=== PATIENT | male | born 1950 | race Caucasian/White ===

== ENCOUNTER → 2018-08-23 | Outpatient (CLI) | payer MEDICARE ==
--- NOTE | 2018-08-24 07:14 | US ---
EXAMINATION TYPE: US kidneys/renal and bladder DATE OF EXAM: 08/23/2018 COMPARISON: NONE CLINICAL HISTORY: R31.9 Hematuria R10.9 Flank pain. EXAM MEASUREMENTS: Right Kidney: 11.1 x 4.7 x 5.4 cm Left Kidney: 11.9 x 6.1 x 5.4 cm Right Kidney: Possible parapelvic cysts vs cortical cyst. Cystic area upper pole visualized 2.1 x 1.7 x 2.1 cm. No hydronephrosis or nephrolithiasis. Left Kidney: No hydronephrosis or masses seen Bladder: wnl Bilateral Jets seen: Yes Cystic area visualized within the right lobe of the liver measuring 3.7 x 2.9 x 3.5 cm. Urinary bladd er is anechoic. Renal cortical medullary differentiation is maintained. No cortical renal thinning. IMPRESSION: Interval appearing hepatic cyst and right renal cyst. No hydronephrosis or nephrolithiasis bilaterall y.
== END | disposition home or self-care (01) ==
LOC: RADUSMAIN 15:40
PROVIDERS: ATTEND Internal Medicine
DX: N28.1 Cyst of kidney, acquired (principal); K76.89 Other specified diseases of liver; R31.9 Hematuria, unspecified
CPT/HCPCS: 76770

== ENCOUNTER → 2019-01-10 | Outpatient (CLI) | payer MEDICARE ==
--- NOTE | 2019-01-10 14:40 | BD ---
EXAMINATION TYPE: Axial Bone Density DATE OF EXAM: 01/10/2019 COMPARISON: NONE CLINICAL HISTORY: M [age]. Disorder of bone density and structure. Postmenopausal female. Osteoporosis screening. Height: 71 inches Weight: 170 FRAX RISK QUESTIONS: Alcohol (3 or more units per day): no Family History (Parent hip fracture): no Glucocorticoids (More than 3mos): no (Ex: prednisone, prednisolone, methylprednisolone, dexamethasone, and hydrocortisone). History of Fracture in Adulthood: no Secondary Osteoporosis: 1. Type 1 Diabetes: no 2. Hyperthyroidism: no 4. Malnutrition: no 5. Chronic liver disease: no Rheumatoid Arthritis: no Current Tobacco Use: no RISK FACTORS HISTORY OF: History of Wrist Fracture: yes When: age 11 Family History of Osteoporosis: no Active: yes Diet low in dairy products/other sources of calcium: no Lost more than 2 inches in height since high school: unsure, states height may have been 6 ft 2 inche s tall Frequent falls: no Poor Health: no Hyperparathyroidism: no Adrenal Insufficiency: no MEDICATIONS: Thyroid Medications: no Additional Medications: blood pressure meds, cholesterol meds, several vitamins, atenolol Additional History: EXAM MEASUREMENTS: Bone mineral densitometry was performed using the [employer] System. Bone mineral density as measured about the Lumbar spine is: ----- L1-L4(G/cm2): 1.531 T Score Values are as follows: ----- L2: 0.9 ----- L3: 2.3 ----- L4: 6.7 ----- L1-L4: 2.9 Bone mineral density BASELINE Bone mineral density about the R hip (g/cm2): 0.592 Bone mineral density about the L hip (g/cm2): 0.648 T Score values are as follows: -----R Neck: -3.2 -----L Neck: -2.8 -----R Total: -2.8 -----L Total: -2.3 Bone mineral density BASELINE IMPRESSION: Osteoporosis (T Score less than -2.5). There is increased fracture risk and therapy is usually indicated based on age. Re-Screen 1-2 years. NOTE: T-SCORE=SD OF THE YOUNG ADULT MEAN.
== END ==
LOC: RADBDWWP 12:34
PROVIDERS: ATTEND Internal Medicine
DX: M81.0 Age-related osteoporosis without current pathological fracture (principal)
CPT/HCPCS: 77080

== ENCOUNTER 2020-10-25 10:02 | Emergency (ER) | payer MEDICARE ==
[2020-10-25] MEDS ORDERED: SODIUM CHLORIDE 0.9% 1,000 ML IV STA (10:20)
[2020-10-25] MEDS: ONDANSETRON 4 MG/2 ML VIAL IVP STA ×2 (10:23→10:27)
[2020-10-25] MEDS: MORPHINE SULFATE 4 MG/ML SYRINGE IV STA ×2 (10:24→10:29)
[2020-10-25 10:36] LABS: Basophils % (A) 1 %; Eosinophils % (A) 0 %; HCT 47.5 % (39.0-53.0); HGB 16.2 gm/dL (13.0-17.5); Lymphocytes # (A) 0.6 k/uL (1.0-4.8); Lymphocytes % (A) 7 %; MCH 31.8 pg (25.0-35.0); MCV 93.5 fL (80.0-100.0); Mean Platelet Volume 6.8; Monocytes # (A) 0.7 k/uL (0-1.0); Monocytes % (A) 9 %; Neutrophils # (A) 6.2 k/uL (1.3-7.7); Neutrophils % (A) 82 %; Platelet Count 156 k/uL (150-450); RBC 5.08 m/uL (4.30-5.90); RDW 13.4 % (11.5-15.5); WBC 7.6 k/uL (3.8-10.6)
[2020-10-25 10:41] LABS: Appearance,Urine Clear (Clear); Bilirubin,Urine Negative (Negative); Blood,Urine Small (Negative); Color,Urine Colorless; Glucose,Urine (UA) Negative (Negative); Ketones,Urine Negative (Negative); Leukocyte Esterase,Urine Negative (Negative); Mucus,Urine Rare /hpf; Nitrite,Urine Negative (Negative); Protein,Urine Negative (Negative); RBC,Urine 20 /hpf (0-5); Specific Gravity,Urine 1.006 (1.001-1.035); Urobilinogen,Urine <2.0 mg/dL (<2.0); WBC,Urine <1 /hpf (0-5)
[2020-10-25] MEDS ORDERED: KETOROLAC 15 MG/ML 1 ML VIAL IVP STA (10:44)
--- NOTE | 2020-10-25 10:45 | ED ---
General Adult HPI - General Chief complaint: Abdominal Pain Stated complaint: ABD Pain Time Seen by Provider: 10/25/20 10:08 Source: EMS, RN notes reviewed Mode of arrival: EMS Limitations: no limitations - History of Present Illness Initial comments: 69-year-old male with a past medical history of right-sided hernia repair, prostatomegaly, hyperlipidemia, hypertension presents to the emergency room for chief complaint of left-sided abdominal pain. Patient states this started late last night when he got a charley horse in his leg. He states he went to lift his left leg had a sudden pain in his left abdomen. States he got up and walked it off and went back to sleep. However this morning it was worse again. Patient recalls this happening a few weeks ago when he went to lift his . Patient denies nausea vomiting diarrhea. Denies fevers or chills.Patient has no other complaints at this time including shortness of breath, chest pain, nausea or vomiting, headache, or visual changes. - Related Data Home Medications Medication Instructions Recorded Confirmed Aspirin EC [Ecotrin Low Dose] 81 mg PO DAILY 10/25/20 10/25/20 Benazepril [Lotensin] 5 mg PO DAILY 10/25/20 10/25/20 Simvastatin [Zocor] 20 mg PO HS 10/25/20 10/25/20 Tamsulosin [Flomax] 0.4 mg PO DAILY 10/25/20 10/25/20 Zinc 50 mg PO DAILY 10/25/20 10/25/20 amLODIPine [Norvasc] 10 mg PO DAILY 10/25/20 10/25/20 atenoloL [Atenolol] 25 mg PO BID 10/25/20 10/25/20 Previous Rx's Medication Instructions Recorded HYDROcodone/APAP 5-325MG [[place] 1 tab PO Q6HR PRN #10 tab 10/25/20 5-325] Ondansetron [Zofran ODT] 4 mg PO Q8HR PRN #15 tab 10/25/20 Allergies Allergy/AdvReac Type Severity Reaction Status Date / Time No Known Allergies Allergy Verified 10/25/20 10:43 Review of Systems ROS Statement: Those systems with pertinent positive or pertinent negative responses have been documented in the HPI. ROS Other: All systems not noted in ROS Statement are negative. Past Medical History Past Medical History: Hyperlipidemia, Hypertension Additional Past Medical History / Comment(s): prostate issues History of Any Multi-Drug Resistant Organisms: None Reported Past Surgical History: Hernia Repair Additional Past Surgical History / Comment(s): right side hernia repair. Past Psychological History: No Psychological Hx Reported Smoking Status: Never smoker Past Alcohol Use History: Occasional Past Drug Use History: None Reported General Exam Limitations: no limitations General appearance: alert, in no apparent distress Head exam: Present: atraumatic, normocephalic, normal inspection Eye exam: Present: normal appearance, PERRL, EOMI. Absent: scleral icterus, conjunctival injection, periorbital swelling ENT exam: Present: normal exam Neck exam: Present: normal inspection, full ROM. Absent: tenderness, meningismus, lymphadenopathy Respiratory exam: Present: normal lung sounds bilaterally. Absent: respiratory distress, wheezes, rales, rhonchi, stridor Cardiovascular Exam: Present: regular rate, normal rhythm, normal heart sounds. Absent: systolic murmur, diastolic murmur, rubs, gallop, clicks GI/Abdominal exam: Present: soft, tenderness (Minimal left lower quadrant abdominal tenderness), normal bowel sounds. Absent: distended, guarding, rebound, rigid Course Vital Signs 10/25/20 10/25/20 10:04 11:33 Temperature 98.9 F 98.5 F Pulse Rate 92 98 Respiratory 16 20 Rate Blood Pressure 181/108 140/85 O2 Sat by Pulse 97 97 Oximetry Medical Decision Making - Medical Decision Making Patient initially hypertensive, did not take his morning blood pressure medications. These were given to him in the ER. Vitals are stable. Patient's blood pressure improved significantly after his daily antihypertensives were given. CBC CMP unremarkable. Urinalysis does show red blood cells no evidence of infection. CT abdomen and pelvis shows a 1.1 cm, just at the left UPJ with moderate obstructive uropathy. No evidence of infection and the urinary tract. There is a 3.1 x 1 point centimeter splenic artery aneurysm as well recommended outpatient vascular referral. Patient was given both vascular referral and urology. He has followed up with urology in the past. He takes Flomax already which she will continue. He will be given [place] and Zofran. He will return for any worsening symptoms. X-ray was obtained for urology. - Lab Data Result diagrams: 10/25/20 10:21 10/25/20 10:21 Lab Results 10/25/20 10/25/20 10/25/20 Range/Units 10:21 10:21 10:21 WBC 7.6 (3.8-10.6) k/uL RBC 5.08 (4.30-5.90) m/uL Hgb 16.2 (13.0-17.5) gm/dL Hct 47.5 (39.0-53.0) % MCV 93.5 (80.0-100.0) fL MCH 31.8 (25.0-35.0) pg MCHC 34.0 (31.0-37.0) g/dL RDW 13.4 (11.5-15.5) % Plt Count 156 (150-450) k/uL MPV 6.8 Neutrophils % 82 % Lymphocytes % 7 % Monocytes % 9 % Eosinophils % 0 % Basophils % 1 % Neutrophils # 6.2 (1.3-7.7) k/uL Lymphocytes # 0.6 L (1.0-4.8) k/uL Monocytes # 0.7 (0-1.0) k/uL Eosinophils # 0.0 (0-0.7) k/uL Basophils # 0.0 (0-0.2) k/uL Sodium 137 (137-145) mmol/L Potassium 3.8 (3.5-5.1) mmol/L Chloride 105 (98-107) mmol/L Carbon Dioxide 26 (22-30) mmol/L Anion Gap 6 mmol/L BUN 19 (9-20) mg/dL Creatinine 1.33 H (0.66-1.25) mg/dL Est GFR (CKD-EPI)AfAm 62 (>60 ml/min/1.73 sqM) Est GFR (CKD-EPI)NonAf 54 (>60 ml/min/1.73 sqM) Glucose 126 H (74-99) mg/dL Plasma Lactic Acid [place] (0.7-2.0) mmol/L Calcium 10.0 (8.4-10.2) mg/dL Total Bilirubin 0.8 (0.2-1.3) mg/dL AST 28 (17-59) U/L ALT 17 (4-49) U/L Alkaline Phosphatase 53 (38-126) U/L Total Protein 6.8 (6.3-8.2) g/dL Albumin 4.2 (3.5-5.0) g/dL Amylase 51 (30-110) U/L Lipase 101 (23-300) U/L Urine Color Colorless Urine Appearance Clear (Clear) Urine pH 7.0 (5.0-8.0) Ur Specific [place] 1.006 (1.001-1.035) Urine Protein Negative (Negative) Urine Glucose (UA) Negative (Negative) Urine Ketones Negative (Negative) Urine Blood Small H (Negative) Urine Nitrite Negative (Negative) Urine Bilirubin Negative (Negative) Urine Urobilinogen <2.0 (<2.0) mg/dL Ur Leukocyte Esterase Negative (Negative) Urine RBC 20 H (0-5) /hpf Urine WBC <1 (0-5) /hpf Urine Mucus Rare H (None) /hpf 10/25/20 Range/Units 10:21 WBC (3.8-10.6) k/uL RBC (4.30-5.90) m/uL Hgb (13.0-17.5) gm/dL Hct (39.0-53.0) % MCV (80.0-100.0) fL MCH (25.0-35.0) pg MCHC (31.0-37.0) g/dL RDW (11.5-15.5) % Plt Count (150-450) k/uL MPV Neutrophils % % Lymphocytes % % Monocytes % % Eosinophils % % Basophils % % Neutrophils # (1.3-7.7) k/uL Lymphocytes # (1.0-4.8) k/uL Monocytes # (0-1.0) k/uL Eosinophils # (0-0.7) k/uL Basophils # (0-0.2) k/uL Sodium (137-145) mmol/L Potassium (3.5-5.1) mmol/L Chloride (98-107) mmol/L Carbon Dioxide (22-30) mmol/L Anion Gap mmol/L BUN (9-20) mg/dL Creatinine (0.66-1.25) mg/dL Est GFR (CKD-EPI)AfAm (>60 ml/min/1.73 sqM) Est GFR (CKD-EPI)NonAf (>60 ml/min/1.73 sqM) Glucose (74-99) mg/dL Plasma Lactic Acid [place] 1.9 (0.7-2.0) mmol/L Calcium (8.4-10.2) mg/dL Total Bilirubin (0.2-1.3) mg/dL AST (17-59) U/L ALT (4-49) U/L Alkaline Phosphatase (38-126) U/L Total Protein (6.3-8.2) g/dL Albumin (3.5-5.0) g/dL Amylase (30-110) U/L Lipase (23-300) U/L Urine Color Urine Appearance (Clear) Urine pH (5.0-8.0) Ur Specific [place] (1.001-1.035) Urine Protein (Negative) Urine Glucose (UA) (Negative) Urine Ketones (Negative) Urine Blood (Negative) Urine Nitrite (Negative) Urine Bilirubin (Negative) Urine Urobilinogen (<2.0) mg/dL Ur Leukocyte Esterase (Negative) Urine RBC (0-5) /hpf Urine WBC (0-5) /hpf Urine Mucus (None) /hpf Disposition Clinical Impression: Kidney stone, Splenic artery aneurysm Disposition: HOME SELF-CARE Condition: Good Instructions (If sedation given, give patient instructions): Kidney Stones (ED) Additional Instructions: Please take Motrin as needed for pain. If pain is severe take [place] but do not drive or operate machinery while taking this. Take Zofran as needed for nausea. Continue to take Flomax as directed daily. Please follow-up with Dr. Lawton, who works with Dr Purvis. Please follow-up with Dr. Alcaraz for vascular surgery consult given finding of splenic artery aneurysm. Prescriptions: HYDROcodone/APAP 5-325MG [[place] 5-325] 1 tab PO Q6HR PRN #10 tab PRN Reason: Pain Ondansetron [Zofran ODT] 4 mg PO Q8HR PRN #15 tab PRN Reason: Nausea Is patient prescribed a controlled substance at d/c from ED?: No Referrals: Esteban Turk MD [Primary Care Provider] - 1-2 days Michael Alcaraz DO [STAFF PHYSICIAN] - 1-2 days Heriberto Lawton MD [STAFF PHYSICIAN] - 1-2 days Time of Disposition: 12:00
[2020-10-25 10:47] LABS: Albumin 4.2 g/dL (3.5-5.0); Potassium 3.8 mmol/L (3.5-5.1); Total Bilirubin 0.8 mg/dL (0.2-1.3); Total Protein 6.8 g/dL (6.3-8.2)
--- NOTE | 2020-10-25 11:22 | CT ---
EXAMINATION TYPE: CT abdomen pelvis w con DATE OF EXAM: 10/25/2020 COMPARISON: NONE HISTORY: 69-year-old male left upper quadrant abdominal pain TECHNIQUE: Contiguous axial scanning of the abdomen and pelvis following administration of 100 ml Iso rodríguez 300 IV contrast. Delayed images through the kidneys and coronal/sagittal reconstructions perform ed. CT DLP: 881 mGycm Automated exposure control for dose reduction was used. FINDINGS: Heart normal size without pericardial effusion. Some strandy atelectasis at the left base without ple ural effusion. Hypodensities within the liver, largest measuring 3.9 cm compatible with a cyst. Subcentimeter hypode nsities are indeterminate and likely represent cysts as well. Portal venous system is patent. No bili glenn ductal dilatation. Gallbladder, adrenal glands, spleen, and pancreas within normal limits. Bilobed splenic artery aneurysm measuring 3.1 x 1.7 cm, coronal image 41. Bilateral renal cysts measuring up to 2.6 cm on the right and 2.5 cm on the left. Nonobstructing 5 mm calculus lower pole left kidney. There is moderate hydronephrosis on the left with perinephric edema, urothelial enhancement of the co llecting system, and a 1.1 cm calculus at the left UPJ. There appears to be necessary left renal omid ry to the lower pole. No dilated small bowel, free fluid, or free air. No mesenteric or retroperitoneal lymphadenopathy. No rmal appendix. Scattered mild stool. Significant diverticulosis without pericolonic inflammatory carrillo ge. Moderate circumferential bladder wall thickening. Prostate gland enlargement 5.3 cm wide. Multiple pe lvic phleboliths. Symmetric fullness of the seminal vesicles. No abnormal fluid collection in the pel vis or pelvic lymphadenopathy. Bones: Degenerative changes of the hips and SI joints. Advanced degenerative changes throughout the l ower lumbar spine. Lipoma within the L3 vertebral body. IMPRESSION: 1. A 1.1 CM CALCULUS AT THE LEFT UPJ WITH MODERATE OBSTRUCTIVE UROPATHY. 2. GIVEN UROTHELIAL ENHANCEMENT OF THE LEFT RENAL COLLECTING SYSTEM AND PROMINENT PERINEPHRIC EDEMA, CORRELATE TO EXCLUDE SUPERIMPOSED INFECTION. 3. ADDITIONAL NONOBSTRUCTIVE 5 MM LEFT RENAL CALCULUS. 4. MODERATE CIRCUMFERENTIAL BLADDER WALL THICKENING COULD REFLECT CYSTITIS OR CHRONIC BLADDER WALL HY PERTROPHY. PROSTATE GLAND IS ENLARGED AT 5.3 CM WIDE. 5. NOTE 3.1 X 1.7 CM BILOBED SPLENIC ARTERY ANEURYSM. RECOMMEND OUTPATIENT VASCULAR SURGERY REFERRAL FOR FUTURE SURVEILLANCE/MANAGEMENT. 6. SIGMOID DIVERTICULOSIS.
[2020-10-25 11:34] VITALS: BP 140/85; PULSE 98; RESP 20; TEMP 98.5
--- NOTE | 2020-10-25 12:15 | XR ---
EXAMINATION TYPE: XR KUB DATE OF EXAM: 10/25/2020 Comparison: Correlation CT exam Clinical History: 69-year-old male with kidney stone Findings: No evidence for free intraperitoneal air. Nonobstructive bowel gas pattern. Moderate stool burden. IV contrast material collected within the bladder. Prominent bowel content. Unable to clearly identif y the left-sided urinary tract calculus seen on CT of the same day. Degenerative levoconvex scoliosis . Leaflets in the pelvis. Impression: Prominent bowel content. Unable to clearly identify the obstructing left UPJ calculus seen on CT of t he same day.
== END 2020-10-25 12:19 | disposition home or self-care (01) ==
LOC: EC 10:02
DX: I72.8 Aneurysm of other specified arteries (principal); N13.8 Other obstructive and reflux uropathy; I10 Essential (primary) hypertension; E78.5 Hyperlipidemia, unspecified; Z79.82 Long term (current) use of aspirin; Z79.899 Other long term (current) drug therapy; Z98.890 Other specified postprocedural states
CPT/HCPCS: 36415; 80053; 82150; 83605; 83690; 85025; 81001; 74018; 74177; 99284; 96360; 96361; Q9967

== ENCOUNTER → 2020-12-01 | Outpatient (CLI) | payer MEDICARE ==
[2020-12-01 13:20] LABS: Appearance,Urine Clear (Clear); Bilirubin,Urine Negative (Negative); Blood,Urine Trace (Negative); Color,Urine Yellow; Glucose,Urine (UA) Negative (Negative); Ketones,Urine Negative (Negative); Leukocyte Esterase,Urine Trace (Negative); Mucus,Urine Rare /hpf; Nitrite,Urine Negative (Negative); PH, Urine 6.5 (5.0-8.0); Protein,Urine Trace (Negative); RBC,Urine 2 /hpf (0-5); Specific Gravity,Urine 1.012 (1.001-1.035); Urobilinogen,Urine <2.0 mg/dL (<2.0); WBC,Urine 3 /hpf (0-5)
== END | disposition home or self-care (01) ==
LOC: LABPAT 10:27
PROVIDERS: ATTEND Internal Medicine
DX: Z01.818 Encounter for other preprocedural examination (principal); N20.1 Calculus of ureter; R31.21 Asymptomatic microscopic hematuria
CPT/HCPCS: 81001; 87086

== ENCOUNTER 2020-12-08 06:07 | Day surgery (SDC) | payer MEDICARE ==
[2020-12-04 13:30] VITALS: BMI 23.7
--- NOTE | 2020-12-06 14:25 | P.HPIHPCON ---
History of Present Illness H&P Date: 12/06/20 Chief Complaint: Left renal calculi Mr. Guzman is a 70-year-old male with history of left 1.1 cm left UPJ stone, and 6 mm nonobstructive stone. Discussed with him given the size of the stone chance of spontaneous passage is fairly low. Discussed with him the option of ureteroscopy to address both of his ureteral and renal stone. Discussed with him ESWL is a poor option for him given his splenic artery aneurysm. Discussed with him the risk which includes but not limited to bleeding, infection, injury to ureter. Discussed also risk from anesthesia. He understood all the risk and agreed to proceed with left-sided ureteroscopy with holmium laser lithotripsy stone basketing and stent placement Consent for Procedure: I have explained the operation/procedure to the patient, including the risks, benefits, side effects, alternative therapies (including not receiving the proposed treatment or service), the likelihood of the patient achieving his/her goals, and potential recuperation problems for the procedure/sedation/analgesia, as well as any blood products, if indicated. I also explained to the patient the risks, benefits and side effects of the alternatives, as well as the risks related to not receiving the proposed procedure, care, treatment, or services. Past Medical History Past Medical History: Hyperlipidemia, Hypertension, Prostate Disorder Additional Past Medical History / Comment(s): prostate issues, kidney stones History of Any Multi-Drug Resistant Organisms: None Reported Past Surgical History: Hernia Repair, Tonsillectomy Additional Past Surgical History / Comment(s): right side hernia repair,vasectomy Past Anesthesia/Blood Transfusion Reactions: No Reported Reaction Smoking Status: Never smoker - Past Family History Mother Family Medical History: Cancer Medications and Allergies Home Medications Medication Instructions Recorded Confirmed Type Aspirin EC [Ecotrin Low Dose] 81 mg PO DAILY 10/25/20 12/04/20 History Benazepril [Lotensin] 5 mg PO DAILY 10/25/20 12/04/20 History HYDROcodone/APAP 5-325MG [[place] 1 tab PO Q6HR PRN #10 tab 10/25/20 12/04/20 Rx 5-325] Ondansetron [Zofran ODT] 4 mg PO Q8HR PRN #15 tab 10/25/20 12/04/20 Rx Simvastatin [Zocor] 20 mg PO HS 10/25/20 12/04/20 History Tamsulosin [Flomax] 0.4 mg PO DAILY 10/25/20 12/04/20 History Zinc 50 mg PO DAILY 10/25/20 12/04/20 History amLODIPine [Norvasc] 10 mg PO DAILY 10/25/20 12/04/20 History atenoloL [Atenolol] 25 mg PO BID 10/25/20 12/04/20 History Allergies Allergy/AdvReac Type Severity Reaction Status Date / Time No Known Allergies Allergy Verified 12/04/20 13:20 Surgical - Exam - General well developed, well nourished, no distress, moderate pain - Eyes PERRL, normal ocular movement - Respiratory normal expansion, normal respiratory effort - Abdomen Abdomen: soft, non tender - Psychiatric oriented to time, oriented to person, oriented to place, speech is normal Assessment and Plan Assessment: 70 yo male with hx of left sided ureteral stone -OR for left-sided ureteroscopy with holmium laser lithotripsy stone basketing and stent placement
[~2020-12-08 06:07] MED LIST: DEXAMETHASONE SOD PHOSPHATE 4 MG/ML 1 ML VIAL IV ONE; HYDROmorphone 0.5 MG/0.5 ML SYRINGE IVP PRN; LACTATED RINGERS 1,000 ML IV SCH; ONDANSETRON 4 MG/2 ML VIAL IVP ONE
[2020-12-08] MEDS ORDERED: LIDOCAINE 1% (10MG/ML) FOR IV START INTRADERMA ONE (07:04)
[2020-12-08 07:08] LABS: Glucose,Whole Blood 91 mg/dL (75-99)
--- NOTE | 2020-12-08 07:26 | XR ---
EXAMINATION TYPE: XR KUB DATE OF EXAM: 12/08/2020 Comparison: 10/25/2020 Clinical History: 70-year-old male left-sided kidney stones Findings: Lung bases are clear. No evidence for free intraperitoneal air. Moderate stool burden. Nonobstructive bowel gas pattern. Phleboliths within the pelvis redemonstrated. Left-sided renal/UPJ calculus measuring 1.7 cm. Curvilinear left upper quadrant calcifications relating to known splenic artery aneurysm. Impression: 1. Left-sided renal/UVJ calculus measuring 1.7 cm. 2. Curvilinear calcifications left upper quadrant relating to known splenic artery aneurysm. Refer to recent CT regarding follow-up recommendations.
[2020-12-08] MEDS ORDERED: fentaNYL (PF) 50 MCG/ML 2 ML AMP ONE (07:34)
[2020-12-08] MEDS ORDERED: NEOSTIGMINE 1 MG/ML 10 ML VIAL ONE (07:34)
[2020-12-08] MEDS ORDERED: GLYCOPYRROLATE 0.2 MG/ML 2 ML VIAL ONE (07:34)
[2020-12-08] MEDS ORDERED: ONDANSETRON 4 MG/2 ML VIAL ONE (07:34)
[2020-12-08] MEDS ORDERED: PROPOFOL 10 MG/ML 20 ML VIAL IV ONE (07:34)
[2020-12-08] MEDS ORDERED: ROCURONIUM 10 MG/ML (10 ML VIAL) IV ONE (07:34)
[2020-12-08] MEDS ORDERED: ePHEDrine SULFATE/0.9% NACL/PF 50 MG/5 ML SYRINGE IV ONE (07:34)
[2020-12-08] MEDS ORDERED: SUCCINYLCHOLINE CHLORIDE 100 MG/5 ML SYR IV ONE (07:34)
[2020-12-08] MEDS ORDERED: LIDOCAINE 1% INJ 10MG/ML (20 ML MDV) ONE (07:34)
[2020-12-08 09:16] VITALS: TEMP 97
--- NOTE | 2020-12-08 09:26 | P.OP ---
Date of Procedure: 12/08/20 Preoperative Diagnosis: left ureteral, renal calculi Postoperative Diagnosis: same Procedure(s) Performed: Cystoscopy, left ureteroscopy, holmium laser lithotripsy, stone basketing and stent placement Implants: 6-[place]ic by 28 cm stent left on a string Anesthesia: RHETT Surgeon: Heriberto Lawton Estimated Blood Loss (ml): 5 Pathology: other (ureteral stone) Condition: stable Disposition: PACU Indications for Procedure: Mr. Guzman is a 70-year-old male with history of left 1.1 cm left UPJ stone, and 6 mm nonobstructive stone. Discussed with him given the size of the stone chance of spontaneous passage is fairly low. Discussed with him the option of ureteroscopy to address both of his ureteral and renal stone. Discussed with him ESWL is a poor option for him given his splenic artery aneurysm. Discussed with him the risk which includes but not limited to bleeding, infection, injury to ureter. Discussed also risk from anesthesia. He understood all the risk and agreed to proceed with left-sided ureteroscopy with holmium laser lithotripsy st one basketing and stent placement Operative Findings: Large stone in the left UPJ, an additional stone in the lower pole on the left Description of Procedure: Patient was brought to the operating room, general anesthesia was induced. He was prepped and draped in sterile fashion a placemed in dorsal lithotomy position. Cystoscopy fitted with a 21-[place] sheath was inserted per urethra, cystoscopy was performed which showed no abnormality within the bladder. 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 Attention was carried to the left ureteral orifice which was intubated with a sensor wire. Next a 1113 [place] access sheath was passed under fluoroscopy over the wire into the proximal ureter. The ureteroscope was advanced through the access sheath. The stone was encountered in the UPJ, using the holmium laser the stone was dusted into small fragments. There is an additional stone in the lower pole that was also fragmented. Sizable fragments were removed using the stone basket. Repeat renoscopy showed no sizable fragments or injury to the kidney. Pullback ureteroscopy was performed showed no injury to the ureter and ureteral stone. Next a ureteral stent was passed over the wire, the proximal curl was visualized on fluoroscopy and the distal curl was visualized using the cystoscope. The stent was left on a string. The bladder was emptied at end of the case. The patient tolerated the procedure well taken to PACU in stable condition
[2020-12-08] MEDS ORDERED: LACTATED RINGERS 1,000 ML IV ONE (09:38)
[2020-12-08 10:34] VITALS: BP 156/93; PULSE 79; RESP 18
--- NOTE | 2020-12-08 10:34 | FL ---
EXAMINATION TYPE: FL fluoroscopy <1hr DATE OF EXAM: 12/08/2020 FLUOROSCOPY Fluoroscopy time of 30 seconds was used during left kidney stone urologic intervention. 2 image/s do cument/s the procedure.
== END 2020-12-08 11:05 | disposition home or self-care (01) ==
LOC: OR 06:07
PROVIDERS: ATTEND Urology
DX: N20.2 Calculus of kidney with calculus of ureter (principal); I10 Essential (primary) hypertension; E78.5 Hyperlipidemia, unspecified; N42.9 Disorder of prostate, unspecified; Z87.442 Personal history of urinary calculi; Z98.890 Other specified postprocedural states; Z90.89 Acquired absence of other organs; Z98.52 Vasectomy status; I72.8 Aneurysm of other specified arteries; Z79.82 Long term (current) use of aspirin; Z79.891 Long term (current) use of opiate analgesic; Z79.899 Other long term (current) drug therapy
CPT/HCPCS: 82365; 76000; 74018; 52356; C2625; C1758; C1769; J1100; J2710; J0690; J2405; J2001; J3010; J0330; J2704

== ENCOUNTER → 2020-12-29 | Outpatient (CLI) | payer MEDICARE ==
[2020-12-29 08:43] LABS: African American GFR (CKD) >90 (>60 ml/min/1.73 sqM); Blood Urea Nitrogen 18 mg/dL (9-20); Non-African American GFR(CKD) 86 (>60 ml/min/1.73 sqM)
--- NOTE | 2020-12-29 10:28 | CT ---
EXAMINATION TYPE: CT angio abdomen pelvis DATE OF EXAM: 12/29/2020 COMPARISON: CT abdomen pelvis October 25, 2020 HISTORY: Splenic Artery Aneurysm CT DLP: 679.1 mGycm, Automated Exposure Control for Dose Reduction was Utilized. CONTRAST: CTA scan of the abdomen and pelvis is performed without oral and without and with IV Contrast, patien t injected with 100 mL of Isovue 370. Aneurysm protocol with 3-D reconstructed images created on an [employer] workstation and reviewed FINDINGS: VASCULAR: There is focal narrowing of the celiac artery seen best sagittal image 54 with poststenotic dilatation. Calcified plaque at origin makes accurate evaluation of stenosis or narrowing difficult. Adjacent low-lying diaphragm noted on sagittal images. Patent SMA without significant plaque or sten osis. Patent bilateral single renal arteries without significant plaque or stenosis. [id number] calcified plaque in the distal abdominal aorta. Patent CLINTON is present. Mild calcified plaque in the common iliac artery branches. No significant stenosis. No significant stenosis in the femoral artery branches in the bilateral groin. There is redemonstration of stable bilobed aneurysm off of tortuous splenic artery seen best coronal image 38 measuring 3.3 x 1.4 cm with some peripheral rim calcificati on redemonstrated. LUNG BASES: No significant abnormality is appreciated. LIVER/GB: Stable dominant 3.7 cm thin-walled cyst posterior right hepatic dome. Stable additional pun ctate hypodense subcentimeter lesions throughout the liver presumed benign. PANCREAS: No significant abnormality is seen. SPLEEN: No significant abnormality is seen. ADRENALS: No significant abnormality is seen. KIDNEYS: Some scattered thin-walled cysts in both kidneys greatest upper pole level are redemonstrate d. There is more prominent calculus burden in lower pole left kidney collecting system axial image 38 possible staghorn calculus versus 2 or more adjacent calculi. I do suspect 2 distinct calculi measur ing roughly 6 mm long axis on coronal images 42 and 43 with perhaps adjacent punctate tiny calculi. A dditional 2 mm punctate calculus just superior to this axial image 33. No right-sided calculi. No hyd ronephrosis seen bilaterally on current study. BOWEL: Normal-appearing appendix. Suboptimal evaluation of bowel without enteric contrast. No suspici ous small or large bowel dilatation. Somewhat redundant sigmoid colon. Some diverticula in the sigmoi d colon are redemonstrated. No CT evidence for acute diverticulitis. PROSTATE/SEMINAL VESICLES: Enlarged prostate consistent with BPH. Scattered bilateral pelvic phleboli ths. LYMPH NODES: No greater than 1cm abdominal or pelvic lymph nodes are appreciated. OSSEOUS STRUCTURES: Levoconvex scoliosis centered at L3 level. Spine is straightened on sagittal imag es. Multilevel moderate to advanced disc space narrowing greatest at L3-L4 level with some ossific fu jesus felt present. Posterior spur disc complexes and facet arthropathy contribute to multilevel spina l canal effacement greatest at L4-L5 level axial image 41. Spurring and narrowing in bilateral sacroi liac joints. OTHER: No significant additional abnormality is seen. 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 2. Interval successful treatment of left UPJ stone and hydronephrosis. Increasing calcific burden lef t lower pole calyx could be a product of stone progression and/or retrograde movement of the lithotri psy stone fragments. 3. 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 Correlate clinically.
== END ==
LOC: RADCTMAIN 07:56
PROVIDERS: ATTEND Surgery
DX: I72.8 Aneurysm of other specified arteries (principal); N13.2 Hydronephrosis with renal and ureteral calculous obstruction
CPT/HCPCS: 82565; 84520; 36415; 74174; Q9967

== ENCOUNTER → 2021-03-04 | Outpatient (CLI) | payer MEDICARE ==
[2021-03-04 08:37] LABS: African American GFR (CKD) >90 (>60 ml/min/1.73 sqM); Blood Urea Nitrogen 14 mg/dL (9-20); Non-African American GFR(CKD) 88 (>60 ml/min/1.73 sqM)
--- NOTE | 2021-03-04 10:51 | CT ---
EXAMINATION TYPE: CT angio abdomen pelvis DATE OF EXAM: 03/04/2021 COMPARISON: CTA abdomen and pelvis December 29, 2020 HISTORY: h/o aneurysm CT DLP: 1287.7 mGycm, Automated Exposure Control for Dose Reduction was Utilized. CONTRAST: CTA scan of the abdomen and pelvis is performed without oral and without and with IV Contrast, patien t injected with 100ml mL of Isovue 370. Aneurysm protocol with 3-D reconstructed images created on an independent workstation and reviewed FINDINGS: VASCULAR: There is stable focal narrowing of the celiac artery seen best sagittal image 25 with posts tenotic dilatation. Calcified plaque at origin makes accurate evaluation of stenosis or narrowing dif ficult similar to prior. Adjacent low-lying diaphragm redemonstrated on same sagittal image. Patent S MA without significant plaque or stenosis. Patent bilateral renal arteries without significant plaque or stenosis. Accessory right renal artery redemonstrated image 18. [id number] calcified plaque in the distal abdominal aorta. Patent CL[place] is redemonstrated. Mild calcified plaque in the common swathi ac artery branches. No significant stenosis. No significant stenosis in the femoral artery branches i n the bilateral groin regions. There is interval intravascular aneurysm treatment with metallic coil and/or coils causing streak art ifact in the epigastric region making current visualization of splenic artery aneurysm suboptimal. Pa tency of the splenic artery past the aneurysm is identified. No obvious persistent contrast opacifica tion or enlarging aneurysm noted. LUNG BASES: Subareolar gynecomastia is seen on current study. LIVER/GB: Stable dominant 3.5 cm thin-walled cyst posterior right hepatic dome. Stable additional pun ctate hypodense subcentimeter lesions throughout the liver presumed benign. PANCREAS: No significant abnormality is seen. SPLEEN: No significant abnormality is seen. ADRENALS: No significant abnormality is seen. KIDNEYS: Some scattered thin-walled cysts in both kidneys are redemonstrated. There is persistent celestina cific burden lower pole left kidney. No significant interval change axial image 40 versus prior study with suspected several small adjacent calculi. No hydronephrosis seen bilaterally on current study. BOWEL: Normal-appearing appendix extending posteriorly from cecum redemonstrated. Suboptimal evaluati on of bowel without enteric contrast. No suspicious small or large bowel dilatation. Somewhat redunda nt sigmoid colon. Some diverticula in the sigmoid colon are redemonstrated. No CT evidence for acute diverticulitis. PROSTATE/SEMINAL VESICLES: Enlarged prostate consistent with BPH bulging on bladder base redemonstrat ed. Scattered bilateral pelvic phleboliths. LYMPH NODES: No greater than 1cm abdominal or pelvic lymph nodes are appreciated. OSSEOUS STRUCTURES: Levoconvex scoliosis centered at L3 level. Loss of normal lumbar lordosis redemon strated. Multilevel moderate to advanced disc space narrowing greatest at L2-L3 through L5-S1 levels. Posterior spur disc complexes and facet arthropathy contribute to multilevel spinal canal effacement greatest at L4-L5 level axial image 43. Spurring and narrowing in bilateral sacroiliac joints. Moder ate axial joint space loss both hips. OTHER: Mild to moderate calcified plaque of the distal aorta extends into branch vessels. IMPRESSION: 1.Suspect interval successful treatment of bilobed splenic artery aneurysm as detailed above. Patency of the splenic artery distal to this is documented.
== END | disposition home or self-care (01) ==
LOC: RADCTMAIN 07:51
PROVIDERS: ATTEND Surgery
DX: I72.8 Aneurysm of other specified arteries (principal)
CPT/HCPCS: 82565; 84520; 36415; 74174; Q9967

== ENCOUNTER 2021-07-29 09:29 | Day surgery (SDC) | payer MEDICARE ==
[2021-07-28 10:57] VITALS: BMI 24.4
[~2021-07-29 09:29] MED LIST changes: -DEXAMETHASONE SOD PHOSPHATE 4 MG/ML 1 ML VIAL IV ONE; -HYDROmorphone 0.5 MG/0.5 ML SYRINGE IVP PRN; +LIDOCAINE 1% (10MG/ML) FOR IV START INTRADERMA PRN; -ONDANSETRON 4 MG/2 ML VIAL IVP ONE
[2021-07-29 09:54] VITALS: RESP 16; TEMP 97.9
[2021-07-29] MEDS ORDERED: PROPOFOL 10 MG/ML 20 ML VIAL IV ONE (10:53)
[2021-07-29] MEDS ORDERED: LIDOCAINE 1% INJ 10MG/ML (20 ML MDV) ONE (10:53)
--- NOTE | 2021-07-29 11:15 | P.PCN ---
Date of Procedure: 07/29/21 Procedure(s) Performed: BRIEF HISTORY: Patient is a 70-year-old pleasant male scheduled for an elective colonoscopy as a part of screening for colorectal neoplasia. PROCEDURE PERFORMED: Colonoscopy. PREOPERATIVE DIAGNOSIS: Screening for colon cancer. IV sedation per Anesthesia. PROCEDURE: After informed consent was obtained, the patient, was brought into the endoscopy unit. IV sedation was administered by Anesthesia under continuous monitoring. Digital rectal examination was normal. Initially the Olympus CF-160 flexible video colonoscope was then inserted in the rectum, gradually advanced into the cecum without any difficulty. Careful examination was performed as the scope was gradually being withdrawn. Ileocecal valve and the appendiceal orifice were visualized and appeared normal. Prep was excellent. Mucosa of the cecum, ascending colon, transverse colon, descending colon, sigmoid colon, and rectum appeared normal. Sigmoid Diverticulosis. Retroflexion was performed in the rectum and no lesions were seen. The patient tolerated the procedure well. IMPRESSION: Normal-appearing colon from rectum to cecum with no evidence of colorectal neoplasia . Scattered sigmoid diverticulosis. RECOMMENDATIONS: Findings of this examination were discussed with the patient as well as his family. He was advised to have a repeat screening colonoscopy in 10 years.
[2021-07-29 11:39] VITALS: BP 159/87; PULSE 70
== END 2021-07-29 12:08 | disposition home or self-care (01) ==
LOC: ORWHC2ENDO 09:29
PROVIDERS: ATTEND Internal Medicine Gastroenterology
DX: Z12.11 Encounter for screening for malignant neoplasm of colon (principal); K57.30 Diverticulosis of large intestine without perforation or abscess without bleeding; I10 Essential (primary) hypertension; E78.5 Hyperlipidemia, unspecified; N42.9 Disorder of prostate, unspecified; Z79.82 Long term (current) use of aspirin; Z79.899 Other long term (current) drug therapy
CPT/HCPCS: G0121; J2001; J2704

== ENCOUNTER → 2022-03-05 | Outpatient (CLI) | payer MEDICARE ==
[2022-03-05 07:39] LABS: African American GFR (CKD) >90 (>60 ml/min/1.73 sqM); Blood Urea Nitrogen 14 mg/dL (9-20); Non-African American GFR(CKD) 87 (>60 ml/min/1.73 sqM)
--- NOTE | 2022-03-05 12:47 | CT ---
EXAMINATION TYPE: CT angio abdomen pelvis DATE OF EXAM: 03/05/2022 COMPARISON: 03/04/2021 INDICATION: Splenic artery aneurysm DLP: 1531 mGycm, Automated exposure control for dose reduction was used. CONTRAST: 100 ml mL of Isovue 370. Study performed without Oral Contrast TECHNIQUE: Axial images were obtained from above the diaphragm to the pubic rami in the axial plane a t 5 mm thick sections. Reconstructed images are reviewed on the computer in the coronal plane. FINDINGS: Limited CT sections are obtained the lung bases. There is a 0.4 cm density on the initial image, ser ies 5 image 1 at the posterior right lung base. This is not identified on the comparison study. This could be out of the field of view. Lungs otherwise appear clear within the [id number]. Consider ad ditional workup with CT chest.. CT ABDOMEN: Liver: There is a large cyst within the superior right liver measuring 2.9 cm. Spleen: Normal Pancreas: Normal as visualized. This has limitation due to significant beam Quinones artifact from ane urysm repair Adrenal glands: The adrenal glands are normal. Gallbladder: Normal Kidneys: No masses are evident. No hydronephrosis is present. Renal cysts are present within the garcia perior poles of the bilateral kidneys. Punctate nonobstructing renal stone is present on the left mid kidney. A couple of small nonobstructing renal stones are inferior pole left kidney measuring 0.2 cm . Aorta: Vascular calcification is within the aorta. Inferior vena cava: Normal. CT PELVIS: Diverticular changes are within the sigmoid colon. Remaining loops of bowel without oral contrast mariana ear unremarkable. Study is without oral contrast Appendix: Normal as visualized. Urinary bladder: Normal. Genitourinary structures: Prostate calcification is present. Osseous structures: No suspicious lytic or sclerotic lesions. Scoliosis degenerative disc changes thr ough the lumbar spine. Postcontrast imaging is performed no enhancing aneurysm is identified. IMPRESSIONS: 1. Post splenic artery aneurysm repair with significant beam hardening artifact. No obvious contrast enhancement at this level is evident. 2. Hepatic cyst. 3. Renal cysts. 4. Punctate density within the right base. Consider additional workup with contrast CT chest.
== END | disposition home or self-care (01) ==
LOC: RADCTMAIN 06:46
PROVIDERS: ATTEND Surgery
DX: I72.8 Aneurysm of other specified arteries (principal); K76.89 Other specified diseases of liver; N28.1 Cyst of kidney, acquired; J98.4 Other disorders of lung
CPT/HCPCS: 82565; 84520; 36415; 74174; Q9967

== ENCOUNTER → 2022-09-16 | Outpatient (CLI) | payer MEDICARE ==
--- NOTE | 2022-09-16 09:45 | MR ---
EXAMINATION TYPE: MR abdomen wo con DATE OF EXAM: 09/16/2022 8:48 AM INDICATION: Patient age:Male; 71 years old; Reason for study: N28.9 disorder of kidney and ureter. Abnormal CT showing cysts or lesions, Hx of Ki dney stone, Hx of lung nodule per patient COMPARISON: CT scan abdomen from 03/05/2022.. TECHNIQUE: Multiplanar multi-sequence imaging was performed without contrast. IV Contrast: None FINDINGS: LOWER CHEST: No gross irregularity. ABDOMEN Liver: 3.2 cm high T2 signal hepatic cysts along with scattered high T2 foci throughout the liver whi ch are subcentimeter and also likely represent cysts. No evidence for cirrhosis or steatosis. Interme diate lesion in the medial aspect of the right hepatic lobe measuring up to 20 mm this appreciated on coronal imaging series 301 image 21. Not significantly changed him back to 12/29/2020. Gallbladder and Bile ducts: Unremarkable. Pancreas: Unremarkable. Spleen: Unremarkable. Adrenal glands: Unremarkable. Kidneys: Bilateral renal cysts that are high T2 low T1 signal measuring up to 3.1 cm on the right and 3.4 cm on the left. Stomach and Bowel: No evidence of bowel obstruction scattered clonic diverticula. Peritoneum: No evidence of pneumoperitoneum, free fluid, or adenopathy. Vasculature: Unremarkable. No aortic aneurysm. Accessory left renal artery off the inferior pole. The re are 2 right renal arteries. Splenic artery aneurysm as seen on prior angiograms measures up to 3.4 x 1.8 cm with low T2 T1 signal from prior repair. Abdominal wall: Unremarkable. Musculoskeletal: The osseous structures appear intact. Multilevel disc degeneration changes with levo scoliosis apex L3. IMPRESSION: 1. Hepatic and renal simple appearing cyst, on this noncontrast exam. 2. Indeterminate lesion in the medial aspect of the liver measuring up to 20 mm felt to be present o n prior CT Angio 12/29/2020. Consider contrast enhanced MRI or CT for further evaluation. 3. Colonic diverticulosis. 4. Postoperative changes to the previous splenic artery aneurysm.
== END | disposition home or self-care (01) ==
LOC: RADMRIMAIN 07:59
PROVIDERS: ATTEND Family Medicine
DX: K57.30 Diverticulosis of large intestine without perforation or abscess without bleeding (principal); N28.1 Cyst of kidney, acquired; K76.89 Other specified diseases of liver; Z98.890 Other specified postprocedural states
CPT/HCPCS: 74181

== ENCOUNTER → 2022-10-25 | Outpatient (CLI) | payer MEDICARE ==
[2022-10-25 12:53] LABS: African American GFR (CKD) >90 (>60 ml/min/1.73 sqM); Blood Urea Nitrogen 15 mg/dL (9-20); Non-African American GFR(CKD) 80 (>60 ml/min/1.73 sqM)
--- NOTE | 2022-10-26 21:10 | CT ---
EXAMINATION TYPE: CT chest abdomen w con DATE OF EXAM: 10/25/2022 COMPARISON: Chest 03/23/2022, abdomen and pelvis 12/29/2020, 10/25/2020 HISTORY: 71-year-old male R91.1 pulmonary nodule, K76.9 liver disease TECHNIQUE: Contiguous axial scanning of the chest and abdomen following administration of 70 ml Isovu e 300 IV contrast. Delayed images through the kidneys and coronal/sagittal reconstructions performed . CT DLP: 794.30 mGycm Automated exposure control for dose reduction was used. FINDINGS: CHEST: Heart normal size without pericardial effusion. Mild LAD coronary artery calcifications are present. Aorta normal caliber. Distal aortic arch is tortuous. Upper descending thoracic aorta ectatic and 3.1 cm. Conventional arch vessel branching anatomy. 1.4 cm nodule of the left thyroid lobe can be further evaluated with dedicated thyroid ultrasound. Mild bilateral gynecomastia. No thoracic lymphadenopathy by CT size criteria. Normal variant azygous fissure. Some strandy atelectasis in the lower lungs. 5 mm posterior right lower lobe pulmonary nodule, axial image 42 is unchanged back to 2020 compatible with a benign etiology. 4 mm anterior right midlung pulmonary nodule, axial image 30 remains unchanged for 7 months suggestin g a benign etiology. An additional one-year follow-up surveillance exam to be performed. No consolidation or pleural effusion. ABDOMEN: Bilateral scattered calcifications abdominal aorta. 6 mm hypodensity right liver lobe unchanged from 2020 compatible with a benign etiology. Cyst posteri or right hepatic dome measuring 3.8 cm is unchanged. A couple additional subcentimeter tiny hypodensi ties are also unchanged, likely tiny cysts. Portal venous system is patent. No biliary ductal dilatat ion. Gallbladder, adrenal glands, spleen, and pancreas within normal limits. Coil mass with extensive streak and beam Quinones artifact left upper quadrant compatible with previou s splenic artery aneurysm coiling.. Scattered bilateral renal cysts measuring up to 2.9 cm on the right and 2.6 cm on the left are benign . No hydronephrosis. A couple nonobstructive 6 mm left lower pole renal calculi are noted. There is a ccessory vasculature to the lower pole of the left kidney. No dilated small bowel, free fluid, or free air. No mesenteric or retroperitoneal lymphadenopathy. Normal appendix. Moderate stool burden. Scattered colonic diverticulosis. No pericolonic inflammatory change. Pelvis not imaged. BONES: Degenerative spurring and bony ankylosis at the SI joints. Degenerative levoconvex scoliosis lumbar s pine. Degenerative change at the sternoclavicular joints. Advanced spondylotic change mid to lower ce rvical spine and moderate throughout the thoracic spine. IMPRESSION: CHEST: 1. 5 MM RIGHT LOWER LOBE PULMONARY NODULE STABLE BACK TO 2020 COMPATIBLE WITH A BENIGN ETIOLOGY. A 4 MM PULMONARY NODULE ANTERIOR RIGHT MIDLUNG IS UNCHANGED FOR 7 MONTHS, ALSO LIKELY BENIGN. AN ADDITION AL ONE-YEAR SURVEILLANCE FOLLOW-UP EXAM CAN DOCUMENT ADDITIONAL LONG-TERM STABILITY. 2. A 1.4 CM NODULE WITHIN THE LEFT LOBE OF THE THYROID GLAND. DEDICATED THYROID ULTRASOUND TO FURTHER EVALUATE. ABDOMEN: 3. BENIGN HEPATIC AND BILATERAL RENAL CYSTS MEASURING UP TO 3.8 CM. 4. A COUPLE NONOBSTRUCTIVE 6 MM LEFT LOWER POLE RENAL CALCULI. 5. METALLIC COILING OF PREVIOUS SPLENIC ARTERY ANEURYSM. 6. MODERATE STOOL BURDEN WITH SCATTERED COLONIC DIVERTICULOSIS.
== END | disposition home or self-care (01) ==
LOC: RADCTMAIN 11:56
PROVIDERS: ATTEND Family Medicine
DX: K76.9 Liver disease, unspecified (principal); N20.0 Calculus of kidney; N28.1 Cyst of kidney, acquired; R91.8 Other nonspecific abnormal finding of lung field; K57.30 Diverticulosis of large intestine without perforation or abscess without bleeding; K76.89 Other specified diseases of liver; R91.1 Solitary pulmonary nodule; R19.5 Other fecal abnormalities
CPT/HCPCS: 82565; 84520; 71260; 74160; 36415; Q9967 ×2

== ENCOUNTER → 2023-04-25 | Outpatient (CLI) | payer MEDICARE ==
--- NOTE | 2023-04-25 07:41 | US ---
EXAMINATION TYPE: US thyroid st tissue head/neck DATE OF EXAM: 04/25/2023 COMPARISON: NONE CLINICAL INDICATION: Male, 72 years old with history of E04.1 THYROID NODULE; Nodule. GLAND SIZE: Right Lobe: 4.1 x 1.5 x 1.3 cm Overall Parenchyma: homogenous Left Lobe: 4.2 x 1.4 x 1.3 cm Overall Parenchyma: homogeneous Isthmus Thickness: 0.2 cm NODULES RIGHT: # of nodules measured on right: 0 LEFT: # of nodules measured on left: 1 1. 1.7 X 1.3 x 1.0 cm, lower mid, solid or almost completely solid, isoechoic nodule, which is wid er than tall, with smooth margins, without echogenic foci. TR 3. Prior size: No prior ISTHMUS: # of nodules measured in the isthmus: 0 Bilateral neck scanned, no evidence of lymphadenopathy. IMPRESSION: 1.7 cm left thyroid lobe TR 3 nodule. Follow-up ultrasound in one year is recommended.
== END | disposition home or self-care (01) ==
LOC: RADUSWWP 06:46
PROVIDERS: ATTEND Family Medicine
DX: E04.1 Nontoxic single thyroid nodule (principal)
CPT/HCPCS: 76536

== ENCOUNTER 2023-10-02 11:23 | Observation (INO) | payer MEDICARE ==
--- NOTE | 2023-10-02 11:33 | ED ---
Chest Pain HPI - General Source: patient Mode of arrival: ambulatory Limitations: no limitations <Kinza Flores - Last Filed: 10/02/23 11:32> - General Source: patient, RN notes reviewed, old records reviewed <Marcello Penn - Last Filed: 10/02/23 19:22> - General Stated Complaint: Chest Tightness, Low Pulse - History of Present Illness Initial Comments: The patient is a 72-year-old gentleman who presents emergency room with complaints of bradycardia. Patient states his heart rate is been in the 30s. He typically runs in the 70s. He has some mild "gas" in the chest. (Kinza Flores) Patient is a 72-year-old male with past history remarkable for hypertension, h yperlipidemia, who presents with the department complaining of chest tightness. Has been intermittent since yesterday. No known palliative or provocative factors. Also states he had an episode of bradycardia at home that he noted on his pulse oximeter. Has not recurred. Patient originally presented as a quick note I evaluated the patient when he was placed in a fast track room. Endorses some mild chest tightness however no other symptoms at this time. No radiation of the pain. No nausea or vomiting. No shortness of breath. Presents for further evaluation. Describes the chest pain as tightness located substernally. (Marcello Penn) - Related Data Home Medications Medication Instructions Recorded Confirmed Benazepril [Lotensin] 5 mg PO DAILY 10/25/20 10/02/23 Simvastatin [Zocor] 20 mg PO HS 10/25/20 10/02/23 Tamsulosin [Flomax] 0.4 mg PO HS 10/25/20 10/02/23 Zinc 50 mg PO DAILY 10/25/20 10/02/23 atenoloL 25 mg PO BID 10/25/20 10/02/23 Cholecalciferol [Vitamin D3 (25 50 mcg PO DAILY 07/28/21 10/02/23 Mcg = 1000 Iu)] Folic Acid 0.4 mg PO DAILY 07/28/21 10/02/23 Vitamin E 400 unit PO DAILY 07/28/21 10/02/23 Ascorbic Acid [Vitamin C] 1,000 mg PO DAILY 10/02/23 10/02/23 amLODIPine [Norvasc] 5 mg PO DAILY 10/02/23 10/02/23 Allergies Allergy/AdvReac Type Severity Reaction Status Date / Time No Known Allergies Allergy Verified 10/02/23 14:14 Review of Systems ROS Other: All systems not noted in ROS Statement are negative. <DeandreArsen lowrylyn - Last Filed: 10/02/23 11:32> ROS Other: All systems not noted in ROS Statement are negative. <Marcello Penn - Last Filed: 10/02/23 19:22> ROS Statement: Those systems with pertinent positive or pertinent negative responses have been documented in the HPI. Review of Systems: CONST: Denies fever EYES: Denies blurry vision ENT: Denies nasal congestion C/V: Endorses chest tightness RESP: Denies shortness of breath GI: Denies abdominal pain : Denies dysuria SKIN: Denies rash. MSK: Denies joint pain. NEURO: Denies headache (Marcello Pnen) EKG Findings - EKG Comments: EKG Findings:: 12-lead Electrocardiogram Interpretation Note. EKG was reviewed and interpreted by myself. 12-lead ECG performed at 1133 is interpreted by me as revealing normal sinus rhythm at a rate of 72 beats per minute. [place] is normal. DC interval is 179 ms, QRS duration is 82 ms, QTc is 401 ms.. There were no ST or T wave abnormalities to suggest myocardial ischemia or injury. R wave progression across the precordium was satisfactory. By my interpretation this EKG is non-diagnostic for acute ischemia. 12-lead Electrocardiogram Interpretation Note. EKG was reviewed and interpreted by myself. 12-lead ECG performed at 1439 is interpreted by me as revealing normal sinus rhythm with PVCs at a rate of 86 beats per minute. [place] is normal.. Intervals 189 ms, QRS duration is 88 ms, QTc is 426 seconds.. There were no ST or T wave abnormalities to suggest myocardial ischemia or injury. R wave progression across the precordium was delayed. By my interpretation this EKG is non- diagnostic for acute ischemia. - EKG Results: EKG: interpreted by ERMD <Marcello Penn - Last Filed: 10/02/23 19:22> Past Medical History Past Medical History: Hyperlipidemia, Hypertension Additional Past Medical History / Comment(s): prostate issues History of Any Multi-Drug Resistant Organisms: None Reported Past Surgical History: Hernia Repair Additional Past Surgical History / Comment(s): Aneursym surgery. Past Anesthesia/Blood Transfusion Reactions: No Reported Reaction Past Psychological History: No Psychological Hx Reported Smoking Status: Never smoker Past Alcohol Use History: Occasional Past Drug Use History: None Reported - Past Family History Mother Family Medical History: Cancer <Kinza Flores - Last Filed: 10/02/23 11:32> General Exam Limitations: no limitations <Kinza Flores - Last Filed: 10/02/23 11:32> <Marcello Penn - Last Filed: 10/02/23 19:22> - General Exam Comments Initial Comments: Visual Physical Exam Vital signs reviewed General: Well-appearing, nontoxic, no acute distress. Head: Normocephalic, atraumatic Eyes: PERRLA, EOMI ENT: Airway patent Chest: Nonlabored breathing Skin: No visual rash, normal skin tone Neuro: Alert and oriented 3 Musculoskeletal: No gross abnormalities (Kinza Flores) General: Appears in no acute distress. HEAD: Normal with no signs of head trauma. EYES: PERRLA, EOMI, conjunctiva normal, no discharge. ENT: Hearing grossly intact, normal oropharynx. RESPIRATORY: Clear breath sounds bilaterally. No wheezes, rales, or rhonchi. C/V: Regular rate and rhythm. S1 and S2 auscultated, no edema, peripheral pulses 2+ and intact throughout ABD: Abd is soft, nontender, nondistended EXT: Normal range of motion, no obvious deformity SKIN: No rashes or lesions observed on exposed skin. NEURO: Alert and oriented 4. No deficits. (Marcello Penn) Course Vital Signs 10/02/23 10/02/23 10/02/23 11:29 13:40 13:50 Temperature 98.1 F Pulse Rate 72 37 L 71 Respiratory 18 19 Rate Blood Pressure 162/91 O2 Sat by Pulse 98 98 Oximetry 10/02/23 10/02/23 10/02/23 14:00 14:15 14:30 Temperature Pulse Rate 80 82 86 Respiratory 17 16 20 Rate Blood Pressure 146/96 O2 Sat by Pulse 97 95 97 Oximetry 10/02/23 10/02/23 15:39 18:41 Temperature Pulse Rate 81 73 Respiratory 23 16 Rate Blood Pressure 123/94 134/83 O2 Sat by Pulse 95 95 Oximetry Chest Pain MDM <Kinza Flores - Last Filed: 10/02/23 11:32> <Marcello Penn - Last Filed: 10/02/23 19:22> - MDM The quick note portion was completed by myself, electronically signed by JASON Arambula. (Kinza Flores) Was pt. sent in by a medical professional or institution (, [facility], [facility], urgent care, hospital, or fdc...) When possible be specific @ -No Did you speak to anyone other than the patient for history (EMS, parent, family, police, friend...)? What history was obtained from this source @ -No Did you review nursing and triage notes (agree or disagree)? Why? @ -I reviewed and agree with nursing and triage notes Were old charts reviewed (outside hosp., previous admission, EMS record, old EKG, old radiological studies, urgent care reports/EKG's, fdc records)? Report findings @ -Old charts reviewed Differential Diagnosis (chest pain, altered mental status, abdominal pain women, abdominal pain men, vaginal bleeding, weakness, fever, dyspnea, syncope, headache, dizziness, GI bleed, back pain, seizure, CVA, palpatations, mental health, musculoskeletal)? @ -Differential Chest Pain: Stable Angina, Unstable Angina, STEMI, NSTEMI Aortic Dissection, Pneumothorax, Musculoskeletal, Esophageal Spasm GERD, Cholecystitis, Pancreatitis, Zoster, this is not meant to be an all-inclusive list. EKG interpreted by me (3pts min.). @ -As above X-rays interpreted by me (1pt min.). @ -Chest x-ray reveals no obvious acute cardiopulmonary process or infiltrate. CT interpreted by me (1pt min.). @ -None done U/S interpreted by me (1pt. min.). @ -None done What testing was considered but not performed or refused? (CT, X-rays, U/S, labs)? Why? @ -None What meds were considered but not given or refused? Why? @ -None Did you discuss the management of the patient with other professionals (professionals i.e. , [facility]ANE[facility], [facility], lab, RT, psych nurse, oncology social work, sleeve machine tender, teacher, loans officer, egg caser)? Give summary @ -Discussed with Dr. Wright of [facility] who accepted the admission. Was smoking cessation discussed for >3mins.? @ -No Was critical care preformed (if so, how long)? @ -No Were there social determinants of health that impacted care today? How? (Homelessness, low income, unemployed, alcoholism, drug addiction, transportation, low edu. Level, literacy, decrease access to med. care, prison, rehab)? @ -No Was there de-escalation of care discussed even if they declined (Discuss DNR or withdrawal of care, Hospice)? DNR status @ -No What co-morbidities impacted this encounter? (DM, HTN, Smoking, COPD, CAD, Cancer, CVA, ARF, Chemo, Hep., AIDS, mental health diagnosis, sleep apnea, morbid obesity)? @ -None Was patient admitted / discharged? Hospital course, mention meds given and route, prescriptions, significant lab abnormalities, going to OR and other per tinent info. @ -Based on the patient's presentation and physical exam, patient originally worked up as a quick. I'm concerned for possible cardiac etiology for his current symptoms. We will admit the patient to observation telemetry for cardiac workup. He was in agreement this plan. Workup thus far shows a unremarkable EKG with no signs of acute ischemia, undetectable troponin. We'll add on a magnesium and troponin. Echo will be ordered. Cardiology will be consulted. He was in agreement this plan. Vital signs are within acceptable limits. While the Patient was in fast track, he did have an episode of bradycardia and he was taken to trauma bay 1. He did not have recurrent episode. We will repeat EKG at this time. 1 nitro tablet may have helped with his pain and he will be placed on Nitropaste. He received 324 mg of aspirin as well. I discussed the patient with the admitting team, Dr. Wright of [facility] who accepted the admission. Undiagnosed new problem with uncertain prognosis? @ -No Drug Therapy requiring intensive monitoring for toxicity (Heparin, Nitro, Insulin, Cardizem)? @ -No Were any procedures done? @ -No Diagnosis/symptom? @ -Chest pain, bradycardia Acute, or Chronic, or Acute on Chronic? @ -Acute Uncomplicated (without systemic symptoms) or Complicated (systemic symptoms)? @ -Complicated Side effects of treatment? @ -No Exacerbation, Progression, or Severe Exacerbation? @ -No Poses a threat to life or bodily function? How? (Chest pain, [place], [place], pneumonia, PE, COPD, DKA, ARF, appy, cholecystitis, CVA, Diverticulitis, Homicidal, Suicidal, threat to staff... and all critical care pts) @ -Potentially, yes (Marcello Penn) Disposition <Kinza Flores - Last Filed: 10/02/23 11:32> Time of Disposition: 14:15 <Marcello Penn - Last Filed: 10/02/23 19:22> Clinical Impression: Chest pain, Bradycardia Disposition: ADMITTED IP TO THIS HOSP Condition: Stable
--- NOTE | 2023-10-02 12:14 | XR ---
EXAMINATION TYPE: XR chest 2V DATE OF EXAM: 10/02/2023 COMPARISON: None INDICATION: Bradycardia chest tightness TECHNIQUE: Frontal and lateral views of the chest are obtained. FINDINGS: The heart size is normal. The pulmonary vasculature is normal. The lungs are clear. Radiopaque object is epigastric region. IMPRESSION: 1. No acute pulmonary process.
[2023-10-02 12:41] LABS: Basophils % (A) 0 %; Eosinophils # (A) 0.1 k/uL (0-0.7); Eosinophils % (A) 1 %; HCT 47.2 % (39.0-53.0); HGB 15.6 gm/dL (13.0-17.5); Lymphocytes # (A) 1.1 k/uL (1.0-4.8); Lymphocytes % (A) 20 %; MCH 31.9 pg (25.0-35.0); MCHC 33.1 g/dL (31.0-37.0); MCV 96.4 fL (80.0-100.0); Mean Platelet Volume 8.1; Monocytes # (A) 0.6 k/uL (0-1.0); Monocytes % (A) 10 %; Neutrophils # (A) 3.7 k/uL (1.3-7.7); Neutrophils % (A) 65 %; Platelet Count 159 k/uL (150-450); RDW 13.9 % (11.5-15.5); WBC 5.6 k/uL (3.8-10.6)
[2023-10-02 12:49] LABS: Prothrombin Time 10.9 sec (10.0-12.5)
[2023-10-02 12:51] LABS: ALT 36 U/L (4-49); AST 35 U/L (17-59); African American GFR (CKD) >90 (>60 ml/min/1.73 sqM); Albumin 3.9 g/dL (3.5-5.0); Alkaline Phosphatase 57 U/L (38-126); Anion Gap 10 mmol/L; Blood Urea Nitrogen 14 mg/dL (9-20); Calcium 9.1 mg/dL (8.4-10.2); Carbon Dioxide 24 mmol/L (22-30); Chloride 104 mmol/L (98-107); Glucose 102 mg/dL (74-99); Non-African American GFR(CKD) >90 (>60 ml/min/1.73 sqM); Potassium 4.1 mmol/L (3.5-5.1); Sodium 138 mmol/L (137-145); Total Bilirubin 0.8 mg/dL (0.2-1.3); Total Protein 6.3 g/dL (6.3-8.2)
[2023-10-02] MEDS ORDERED: ASPIRIN 81 MG PO STA (13:45)
[2023-10-02] MEDS ORDERED: NITROGLYCERIN SL TABS 0.4 MG TAB SUBLINGUAL PRN (13:50)
[2023-10-02] MEDS ORDERED: SODIUM CHLORIDE 0.9% 1,000 ML IV STA (13:55)
[2023-10-02] MEDS ORDERED: ONDANSETRON 4 MG/2 ML VIAL IVP PRN (14:17)
[2023-10-02] MEDS ORDERED: NALOXONE 0.4 MG/ML 1 ML VIAL IVP PRN (14:17)
[2023-10-02] MEDS ORDERED: CALCIUM CARBONATE 500 MG CHEWABLE PO PRN (14:17)
[2023-10-02] MEDS ORDERED: ACETAMINOPHEN TAB 325 MG TAB PO PRN (14:17)
[2023-10-02] MEDS ORDERED: NALOXONE 0.4 MG/ML 1 ML VIAL IV PRN (14:24)
[2023-10-02] MEDS: NITROGLYCERIN OINT 1 INCH/GM PACKET TOPICAL SCH ×2 (15:37→23:40)
[2023-10-02] MEDS ORDERED: TAMSULOSIN 0.4 MG CAP.ER.24H PO SCH (21:00)
[2023-10-02] MEDS ORDERED: ATORVASTATIN 10 MG TAB PO SCH (21:00)
--- NOTE | 2023-10-03 01:49 | P.HPIM ---
History of Present Illness H&P Date: 10/02/23 Chief Complaint: Chest Pain, Bradycardia * 72-year-old gentleman with past medical history significant for renal stone, history of prostate disorder, hypertension, hyperlipidemia presents to the emergency department with complaints of chest pain * Patient had symptom onset early in the day and complained of midsternal chest pain. * Workup in ER included CBC which was essentially negative, serum chemistry within normal limits * Patient had EKG Done, initial troponin obtained within normal limits * No significant ST segment changes on EKG * Patient does had episode of bradycardia, and will be admitted to observation unit with consultation from cardiology to rule out ACS REVIEW OF SYSTEMS: Chest pain CONSTITUTIONAL: No fever, no malaise, no fatigue. HEENT: No recent visual problems or hearing problems. Denied any sore throat. CARDIOVASCULAR: No chest pain, orthopnea, PND, no palpitations, no syncope. PULMONARY: No shortness of breath, no cough, no hemoptysis. GASTROINTESTINAL: No diarrhea, no nausea, no vomiting, no abdominal pain. NEUROLOGICAL: No headaches, no weakness, no numbness. HEMATOLOGICAL: Denies any bleeding or petechiae. GENITOURINARY: Denies any burning micturition, frequency, or urgency. MUSCULOSKELETAL/RHEUMATOLOGICAL: Denies any joint pain, swelling, or any muscle pain. ENDOCRINE: Denies any polyuria or polydipsia. PHYSICAL EXAMINATION: GENERAL: The patient is alert and oriented x3, Well developed, well nourished. HEENT: Pupils are round and equally reacting to light. EOMI. CARDIOVASCULAR: S1 and S2 present. Bradycardia PULMONARY: Chest is clear to auscultation, no wheezing or crackles. ABDOMEN: Soft, nontender, nondistended, normoactive bowel sounds. No palpable organomegaly. MUSCULOSKELETAL: No joint swelling or deformity. EXTREMITIES: No cyanosis, clubbing, or pedal edema. NEUROLOGICAL: Gross neurological examination did not reveal any focal deficits. SKIN: No rashes. Past Medical History Past Medical History: Hyperlipidemia, Hypertension Additional Past Medical History / Comment(s): prostate issues History of Any Multi-Drug Resistant Organisms: None Reported Past Surgical History: Hernia Repair Additional Past Surgical History / Comment(s): Aneursym surgery. Past Anesthesia/Blood Transfusion Reactions: No Reported Reaction Past Psychological History: No Psychological Hx Reported Smoking Status: Never smoker Past Alcohol Use History: Occasional Past Drug Use History: None Reported - Past Family History Mother Family Medical History: Cancer Medications and Allergies Home Medications Medication Instructions Recorded Confirmed Type Benazepril [Lotensin] 5 mg PO DAILY 10/25/20 10/02/23 History Simvastatin [Zocor] 20 mg PO HS 10/25/20 10/02/23 History Tamsulosin [Flomax] 0.4 mg PO HS 10/25/20 10/02/23 History Zinc 50 mg PO DAILY 10/25/20 10/02/23 History atenoloL 25 mg PO BID 10/25/20 10/02/23 History Cholecalciferol [Vitamin D3 (25 50 mcg PO DAILY 07/28/21 10/02/23 History Mcg = 1000 Iu)] Folic Acid 0.4 mg PO DAILY 07/28/21 10/02/23 History Vitamin E 400 unit PO DAILY 07/28/21 10/02/23 History Ascorbic Acid [Vitamin C] 1,000 mg PO DAILY 10/02/23 10/02/23 History amLODIPine [Norvasc] 5 mg PO DAILY 10/02/23 10/02/23 History Allergies Allergy/AdvReac Type Severity Reaction Status Date / Time No Known Allergies Allergy Verified 10/02/23 14:14 Physical Exam Vitals: Vital Signs Temp Pulse Resp BP Pulse Ox 10/02/23 13:40 37 L 10/02/23 11:29 98.1 F 72 18 162/91 98 Intake and Output 10/01/23 10/02/23 10/02/23 22:59 06:59 14:59 Other: Weight 81.647 kg Results CBC & Chem 7: 10/02/23 11:33 10/02/23 11:33 Labs: Abnormal Lab Results - Last 24 Hours (Table) 10/02/23 Range/Units 11:33 Glucose 102 H (74-99) mg/dL Assessment and Plan Assessment: Assessment and plan Chest pain rule out ACS Bradycardia on admission History of hypertension History of BPH Dyslipidemia In regards to chest pain, serial troponins ordered, a 10 oversecondarytobradycardia,sublingualnit roglycerinforchestpain,cardiologyconsulted In regards to bradycardia, continue telemetry monitoring, atenolol on hold In regards to history of hypertension continue patient on amlodipine and benazepril, hold atenolol In regards to BPH continue Flomax In regards to her dyslipidemia continue simvastatin Code status is No CODE.DIscussed with patient on admission Time with Patient: Greater than 30
[2023-10-03] MEDS: FOLIC ACID 1 MG TAB PO SCH ×2 (07:00→09:51)
[2023-10-03 08:29] VITALS: BP 162/86; PULSE 64; RESP 16; TEMP 97.7
[2023-10-03] MEDS ORDERED: ASPIRIN 81 MG PO SCH (09:00)
[2023-10-03] MEDS ORDERED: lisinopriL 5 MG TAB PO SCH (09:00)
[2023-10-03] MEDS ORDERED: ENOXAPARIN 40 MG/0.4 ML SYRINGE SQ SCH (09:00)
[2023-10-03] MEDS ORDERED: amLODIPine 5 MG TAB PO SCH (09:00)
--- NOTE | 2023-10-03 10:34 | P.CRDCN ---
History of Present Illness History of present illness: HISTORY OF PRESENT ILLNESS: This is a 72-year-old male with a past medical history significant for hypertension and hyperlipidemia. Patient does not follow with a iron bender. We have been asked to see the patient in consultation for chest pain. Patient examined at the bedside. Patient states he started feeling unwell on Tuesday. He he is unable to elaborate on his symptoms but states he just did not feel well. He does report feeling weak. He states that he went to bed that night and began having chest discomfort. He states it felt like gas pains which continued on and off throughout the night. He states yesterday morning he woke up and continued having pain in his chest so he came to the emergency room for further evaluation. He denied any radiation of the pain. He denied any shortness of breath. He reports feeling slightly lightheaded. He denied any dizziness however. He states at home his blood pressure usually runs in the 140s. He checked his vitals on his machine at home and was found to be bradycardic. However the patient is having frequent PVCs upon review of telemetry which is inaccurately reporting his heart rate. * EKG reveals sinus mechanism with nonspecific ST-T wave changes. Frequent PVCs. * Chest xray negative for acute process * Laboratory data: Troponin negative 3. TSH 1.210. Potassium 4.1. Magnesium 2.0. * Current home cardiac medications include atenolol 25 mg twice a day, Benzapril 5 mg daily, amlodipine 5 mg daily, simvastatin 20 mg at night * No previous echocardiogram or cardiac catheterization available for review in EMR REVIEW OF SYSTEMS: At the time of my exam: CONSTITUTIONAL: Denies fever or chills. HEENT: Denies blurred vision, vision changes, or eye pain. Denies hemoptysis CARDIOVASCULAR: Denies chest pain. Denies orthopnea. Denies PND. Denies palpitations RESPIRATORY: Denies shortness of breath. GASTROINTESTINAL: Denies abdominal pain. Denies nausea or vomiting. HEMATOLOGIC: Denies bleeding disorders. GENITOURINARY: Denies any blood in urine. SKIN: Denies pruitis. Denies rash. PHYSICAL EXAM: VITAL SIGNS: Reviewed. GENERAL: Well-developed in no acute distress. HEENT: Head is normocephalic. Pupils are equal, round. Sclerae anicteric. Mucous membranes of the mouth are moist. Neck supple. No JVD or thyromegaly LUNGS: Respirations even and unlabored. Lungs essentially clear to auscultation bilaterally. HEART: Regular rate and rhythm. S1 and S2 heard. ABDOMEN: Soft. Nondistended. Nontender. EXTREMITIES: Normal range of motion. No clubbing or cyanosis. Peripheral pulses intact. No lower extremity edema NEUROLOGIC: Awake and alert. Oriented x 3. ASSESSMENT: Chest pain, troponins negative 3 Bradycardia, ruled out, inaccurately captured on vitals machine secondary to frequent PVCs Frequent PVCs Hypertension Hyperlipidemia PLAN: An acute coronary been has been ruled out Obtain 2-D echo to assess cardiac structure and function Resume home cardiac medications Resume atenolol secondary to frequent PVCs. No significant bradycardia noted. Add aspirin 81 mg daily Check lipid panel and hemoglobin A1c Patient to undergo stress echocardiogram today Further recommendations pending patient's course Nurse practitioner note has been reviewed by physician. Signing provider agrees with the documented findings, assessment, and plan of care. Past Medical History Past Medical History: Hyperlipidemia, Hypertension Additional Past Medical History / Comment(s): prostate issues History of Any Multi-Drug Resistant Organisms: None Reported Past Surgical History: Hernia Repair Additional Past Surgical History / Comment(s): Aneursym surgery. Past Anesthesia/Blood Transfusion Reactions: No Reported Reaction Past Psychological History: No Psychological Hx Reported Smoking Status: Never smoker Past Alcohol Use History: Occasional Past Drug Use History: None Reported - Past Family History Mother Family Medical History: Cancer Medications and Allergies Home Medications Medication Instructions Recorded Confirmed Type Benazepril [Lotensin] 5 mg PO DAILY 10/25/20 10/02/23 History Simvastatin [Zocor] 20 mg PO HS 10/25/20 10/02/23 History Tamsulosin [Flomax] 0.4 mg PO HS 10/25/20 10/02/23 History Zinc 50 mg PO DAILY 10/25/20 10/02/23 History atenoloL 25 mg PO BID 10/25/20 10/02/23 History Cholecalciferol [Vitamin D3 (25 50 mcg PO DAILY 07/28/21 10/02/23 History Mcg = 1000 Iu)] Folic Acid 0.4 mg PO DAILY 07/28/21 10/02/23 History Vitamin E 400 unit PO DAILY 07/28/21 10/02/23 History Ascorbic Acid [Vitamin C] 1,000 mg PO DAILY 10/02/23 10/02/23 History amLODIPine [Norvasc] 5 mg PO DAILY 10/02/23 10/02/23 History Allergies Allergy/AdvReac Type Severity Reaction Status Date / Time No Known Allergies Allergy Verified 10/02/23 14:14 Physical Exam Vitals: Vital Signs Temp Pulse Pulse Resp BP BP Pulse Ox 10/03/23 08:26 97.7 F 64 16 162/86 99 10/03/23 06:07 70 17 109/73 95 10/03/23 02:16 55 L 17 133/78 95 10/03/23 00:00 64 18 128/91 94 L 10/02/23 23:00 64 20 128/91 95 10/02/23 22:00 67 22 136/85 94 L 10/02/23 20:00 64 22 121/78 95 10/02/23 18:41 73 16 134/83 95 10/02/23 18:00 78 19 150/92 95 10/02/23 17:00 86 12 139/91 96 10/02/23 16:00 77 14 123/94 97 10/02/23 15:39 81 23 123/94 95 10/02/23 15:00 79 10 L 146/96 97 10/02/23 14:30 86 20 146/96 97 10/02/23 14:15 82 16 95 10/02/23 14:00 80 17 97 10/02/23 13:50 71 19 98 10/02/23 13:40 37 L 10/02/23 11:29 98.1 F 72 18 162/91 98 Results 10/02/23 11:33 10/02/23 11:33 Cardiac Enzymes 10/02/23 10/02/23 10/02/23 Range/Units 11:33 11:33 17:53 AST 35 (17-59) U/L Troponin I <0.012 <0.012 (0.000-0.034) ng/mL 10/02/23 Range/Units 21:34 AST (17-59) U/L Troponin I <0.012 (0.000-0.034) ng/mL Coagulation 10/02/23 Range/Units 11:33 PT 10.9 (10.0-12.5) sec APTT 25.0 (22.0-30.0) sec CBC 10/02/23 Range/Units 11:33 WBC 5.6 (3.8-10.6) k/uL RBC 4.90 (4.30-5.90) m/uL Hgb 15.6 (13.0-17.5) gm/dL Hct 47.2 (39.0-53.0) % Plt Count 159 (150-450) k/uL Comprehensive Metabolic Panel 10/02/23 Range/Units 11:33 Sodium 138 (137-145) mmol/L Potassium 4.1 (3.5-5.1) mmol/L Chloride 104 (98-107) mmol/L Carbon Dioxide 24 (22-30) mmol/L BUN 14 (9-20) mg/dL Creatinine 0.76 (0.66-1.25) mg/dL Glucose 102 H (74-99) mg/dL Calcium 9.1 (8.4-10.2) mg/dL AST 35 (17-59) U/L ALT 36 (4-49) U/L Alkaline Phosphatase 57 (38-126) U/L Total Protein 6.3 (6.3-8.2) g/dL Albumin 3.9 (3.5-5.0) g/dL Current Medications Generic Name Dose Route Start Last Admin Trade Name Freq PRN Reason Stop Dose Admin Acetaminophen 650 mg 10/02/23 14:17 Acetaminophen Tab 325 Mg Tab PO Q6HR PRN Mild Pain or Fever > 100.5 Amlodipine Besylate 5 mg 10/03/23 09:00 Amlodipine 5 Mg Tab PO DAILY [facility] Aspirin 81 mg 10/03/23 09:00 Aspirin 81 Mg PO DAILY [facility] Atorvastatin Calcium 20 mg 10/03/23 21:00 Atorvastatin 20 Mg Tab PO HS [facility] Calcium Carbonate/Glycine 1,000 mg 10/02/23 14:17 Calcium Carbonate 500 Mg Chewable PO Q4HR PRN Dyspepsia Enoxaparin Sodium 40 mg 10/03/23 09:00 Enoxaparin 40 Mg/0.4 Ml Syringe SQ DAILY [facility] Folic Acid 0.5 mg 10/03/23 09:00 Folic Acid 1 Mg Tab PO DAILY [facility] Lisinopril 5 mg 10/03/23 09:00 Lisinopril 5 Mg Tab PO DAILY [facility] Naloxone HCl 0.2 mg 10/02/23 14:17 Naloxone 0.4 Mg/Ml 1 Ml Vial IVP Q2M PRN Opioid Reversal Nitroglycerin 0.4 mg 10/02/23 13:50 10/02/23 13:58 Nitroglycerin Sl Tabs 0.4 Mg Tab SUBLINGUAL 0.4 mg Q5M PRN Administration Chest Pain Ondansetron HCl 4 mg 10/02/23 14:17 Ondansetron 4 Mg/2 Ml Vial IVP Q8HR PRN Nausea And Vomiting Tamsulosin HCl 0.4 mg 10/02/23 21:00 10/02/23 21:29 Tamsulosin 0.4 Mg Cap.Er.24h PO 0.4 mg HS [place] Administration 10/02/23 11:33 10/02/23 11:33
--- NOTE | 2023-10-03 11:49 | CA ---
Stress Echo Report Erick Guzman Age: 72 Gender: M : 1950 Exam Date: 10/03/2023 11:06 Exam Location: [place] [facility] Ht (in): 72 Wt (lb): 180 Ordering Physician: Geno Larose Referring Physician: [id number] Grinder Hardboard: ET Technologist Procedure CPT: Indication: CP ICD-9 Codes: Rhythm: Patient History: CP, PALP, HTN, CHOL, FAMILY HX Cardiac Medications: SEE CHART Medications in past 24 hours: Contrast: Stress Results Protocol: Abel Total dose(mL): Exercise Duration (min:sec): 10:[address] Depression (mm): Angina Score: Barnard Score: METS: 11.9 Resting HR: 81 Resting BP: 126 / 59 Peak HR: 129 Peak BP: 210 / 92 Max Predicted HR: 146 88 % Max Predicted HR Target HR: 124 Double Product: [id number] Stress Summary: BP Response: Reason for Termination: Reached target heart rate or work-load Cardiac Symptoms: ASMYPTOMATIC ECG Analysis Resting ECG: Stress ECG: Arrhythmia: Echo Analysis Resting Echo: Peak Echo Analysis: MEASUREMENTS (Male/Female) Normal Values CONCLUSIONS Excellent exercise tolerance Abnormal EKG response to exercise with frequent PVCs no ST changes Normal echocardiogram in response to exercise Dr. Helio Sarah MD (Electronically Signed) Final Date: 03 October 2023 11:48
--- NOTE | 2023-10-03 12:03 | CA ---
Transthoracic Echo Report Name: Erick Guzman Age: 72 Gender: M : 1950 Exam Date: 10/03/2023 11:24 Exam Location: [place] [facility] Ht (in): 72 Wt (lb): 180 Ordering Physician: Marcello Penn MD Attending/Referring Phys: Char Filter Operator Helper Charlee Zavala [facility] Procedure CPT: Indications: Chest Pain Cardiac Hx: Technical Quality: Fair Contrast 1: Total Dose (mL): Contrast 2: Total Dose (mL): MEASUREMENTS (Male / Female) Normal Values 2D ECHO LV Diastolic Diameter PLAX 5.1 cm 4.2 - 5.9 / 3.9 - 5.3 cm LV Systolic Diameter PLAX 3.1 cm IVS Diastolic Thickness 0.9 cm 0.6 - 1.0 / 0.6 - 0.9 cm LVPW Diastolic Thickness 0.9 cm 0.6 - 1.0 / 0.6 - 0.9 cm LV Relative Wall Thickness 0.4 LVOT Diameter 2.0 cm Ascending Aorta Diameter 3.1 cm M-MODE Aortic Root Diameter MM 2.8 cm LA Systolic Diameter MM 2.9 cm LA Ao Ratio MM 1.1 AV Cusp Separation MM 1.4 cm DOPPLER AV Peak Velocity 172.7 cm/s AV Peak Gradient 11.9 mmHg AV Mean Velocity 126.1 cm/s AV Mean Gradient 7.2 mmHg AV Velocity Time Integral 33.7 cm LVOT Peak Velocity 95.7 cm/s LVOT Peak Gradient 3.7 mmHg LVOT Velocity Time Integral 24.0 cm LVOT Stroke Volume 73.5 cm??? LVOT Stroke Volume Index 36.1 ml/m??? LVOT Cardiac Index 3166.4 cm???/min???m??? AV Area Cont Eq vti 2.2 cm??? AV Area Cont Eq pk 1.7 cm??? Mitral E Point Velocity 67.2 cm/s Mitral A Point Velocity 85.7 cm/s Mitral E to A Ratio 0.8 MV Deceleration Time 270.0 ms LV E' Lateral Velocity 9.3 cm/s Mitral E to LV E' Lateral Ratio 7.2 LV E' Septal Velocity 7.2 cm/s Mitral E to LV E' Septal Ratio 9.3 TR Peak Velocity 253.1 cm/s TR Peak Gradient 25.6 mmHg Right Atrial Pressure 3.0 mmHg Pulmonary Artery Systolic Pressu 28.6 mmHg Right Ventricular Systolic Press 28.6 mmHg FINDINGS Left Ventricle Left ventricular wall thickness normal. Left ventricular cavity size normal. Low normal left ventricular systolic function with no obvious regional wall motion abnormalities. Left ventricular ejection fraction is estimated at 50- 55%. Right Ventricle Normal right ventricular size. Right Atrium Normal right atrial size. Left Atrium Normal left atrial size. Mitral Valve Mitral valve thickened. Mitral valve prolapse. No mitral regurgitation. Aortic Valve Trileaflet aortic valve. Aortic valve sclerosis. Trace aortic regurgitation. Tricuspid Valve Structurally normal tricuspid valve. Trace tricuspid regurgitation. Pulmonic Valve Pulmonic valve not well visualized. Pericardium No pericardial effusion. Aorta Normal size aortic root and proximal ascending aorta. CONCLUSIONS Technically difficult study for interpretation Normal LV systolic function Mitral valve prolapse Previewed by: Dr. Helio Sarah MD (Electronically Signed) Final Date: 03 October 2023 12:02
--- NOTE | 2023-10-03 12:49 | P.DS ---
Providers Date of admission: 10/02/23 14:25 Expected date of discharge: 10/03/23 Attending physician: Nila Wright MD Consults: 10/02/23 14:17 Consult Physician Routine Consulting Provider: [facility] Consult Reason/Comments: Chest Pain Do you want consulting provider notified?: Yes Primary care physician: [facility] Course: * 72-year-old gentleman with past medical history significant for renal stone, history of prostate disorder, hypertension, hyperlipidemia presents to the emergency department with complaints of chest pain * Patient had symptom onset early in the day and complained of midsternal chest pain. * Workup in ER included CBC which was essentially negative, serum chemistry within normal limits * Patient had EKG Done, initial troponin obtained within normal limits * No significant ST segment changes on EKG * Patient does had episode of bradycardia, and will be admitted to observation unit with consultation from cardiology to rule out ACS * 10/03/2023: Patient seen and evaluated bedside, patient had serial troponins done which were negative, patient underwent stress test which was negative for ischemia, cardiac medications were reviewed cardiology recommended to continue atenolol upon discharge, patient remains chest pain. He already given fluid bolus, discharged home in stable condition PHYSICAL EXAMINATION: GENERAL: The patient is alert and oriented x3, Well developed, well nourished. HEENT: Pupils are round and equally reacting to light. EOMI. CARDIOVASCULAR: S1 and S2 present. Bradycardia PULMONARY: Chest is clear to auscultation, no wheezing or crackles. ABDOMEN: Soft, nontender, nondistended, normoactive bowel sounds. No palpable organomegaly. MUSCULOSKELETAL: No joint swelling or deformity. EXTREMITIES: No cyanosis, clubbing, or pedal edema. NEUROLOGICAL: Gross neurological examination did not reveal any focal deficits. SKIN: No rashes. Assessment: Assessment and plan Chest pain ruleD out ACS Bradycardia on admission History of hypertension History of BPH Dyslipidemia In regards to chest pain, s, serial troponins negative, stress test within normal limits, continue current medical management In regards to bradycardia, resolved, resumed back on atenolol heart rate in 70s In regards to history of hypertension continue patient on amlodipine and benazepril, 2 maternal per cardiology recommendation In regards to BPH continue Flomax In regards to her dyslipidemia continue statin home medication Patient Condition at Discharge: Stable Plan - Discharge Summary New Discharge Prescriptions: Continue atenoloL 25 mg PO BID Tamsulosin [Flomax] 0.4 mg PO HS Simvastatin [Zocor] 20 mg PO HS Benazepril [Lotensin] 5 mg PO DAILY Zinc 50 mg PO DAILY Folic Acid 0.4 mg PO DAILY amLODIPine [Norvasc] 5 mg PO DAILY Ascorbic Acid [Vitamin C] 1,000 mg PO DAILY Cholecalciferol [Vitamin D3 (25 Mcg = 1000 Iu)] 50 mcg PO DAILY Vitamin E 400 unit PO DAILY Discharge Medication List Benazepril [Lotensin] 5 mg PO DAILY 10/25/20 [History] Simvastatin [Zocor] 20 mg PO HS 10/25/20 [History] Tamsulosin [Flomax] 0.4 mg PO HS 10/25/20 [History] Zinc 50 mg PO DAILY 10/25/20 [History] atenoloL 25 mg PO BID 10/25/20 [History] Cholecalciferol [Vitamin D3 (25 Mcg = 1000 Iu)] 50 mcg PO DAILY 07/28/21 [History] Folic Acid 0.4 mg PO DAILY 07/28/21 [History] Vitamin E 400 unit PO DAILY 07/28/21 [History] Ascorbic Acid [Vitamin C] 1,000 mg PO DAILY 10/02/23 [History] amLODIPine [Norvasc] 5 mg PO DAILY 10/02/23 [History] Follow up Appointment(s)/Referral(s): Contreras Seanz DO [Primary Care Provider] - 1-2 days Discharge Disposition: HOME SELF-CARE
[2023-10-03 16:31] LABS: Chol/HDL Ratio 2.67 Ratio; LDL Cholesterol,Calculated 76.8 mg/dL (0.0-131.0); VLDL Calculation 13.88 mg/dL (5.00-40.00)
[2023-10-03] MEDS ORDERED: atenoloL 25 MG TAB PO SCH (21:00)
[2023-10-03] MEDS ORDERED: ATORVASTATIN 20 MG TAB PO SCH (21:00)
== END 2023-10-03 14:21 | disposition home or self-care (01) ==
LOC: EC 11:23 → 6NMEDSUR 14:25
PROVIDERS: ADMIT Internal Medicine; ATTEND Internal Medicine
DX: R07.89 Other chest pain (principal); I49.3 Ventricular premature depolarization; I10 Essential (primary) hypertension; E78.5 Hyperlipidemia, unspecified; N40.0 Benign prostatic hyperplasia without lower urinary tract symptoms; Z79.899 Other long term (current) drug therapy; Z87.442 Personal history of urinary calculi; Z98.890 Other specified postprocedural states; Z80.9 Family history of malignant neoplasm, unspecified
CPT/HCPCS: 96360; 96361; 99285; 36415; 93005; 93306; 93351; 80061; 80053; 83735; 84443; 84484; 85025; 85610; 85730; 83036; 71046; G0378 ×2

== ENCOUNTER → 2023-11-02 | Outpatient (CLI) | payer MEDICARE | END | disposition home or self-care (01) | LOC: RADECHMAIN 10-28 07:28 | PROVIDERS: ATTEND Family Medicine | DX: Z53.9 Procedure and treatment not carried out, unspecified reason (principal) | CPT/HCPCS: 93225; 93226 ==

== ENCOUNTER → 2024-05-10 | Outpatient (CLI) | payer MEDICARE ==
[2024-05-10 08:51] LABS: African American GFR (CKD) >90 (>60 ml/min/1.73 sqM); Blood Urea Nitrogen 14 mg/dL (9-20); Non-African American GFR(CKD) 86 (>60 ml/min/1.73 sqM)
--- NOTE | 2024-05-21 07:34 | CT ---
EXAMINATION TYPE: CT angio abdomen pelvis DATE OF EXAM: 05/10/2024 COMPARISON: 10/25/2022 INDICATION: Splenic artery aneurysm, splenic artery repair DLP: 1166.80 mGycm, Automated exposure control for dose reduction was used. CONTRAST: 100 mL of Isovue 370. Study performed without Oral Contrast TECHNIQUE: Axial images were obtained from above the diaphragm to the pubic rami in the axial plane a t 5 mm thick sections. Reconstructed images are reviewed on the computer in the coronal plane. FINDINGS: Limited CT sections are obtained the lung bases. The lung bases are clear. CT ABDOMEN: Scatter artifact is present from prior aneurysm repair of the splenic artery. Finding mariana ears stable. Liver: There is a 3.4 cm hepatic cyst present previously. Spleen: Normal Pancreas: Normal Adrenal glands: The adrenal glands are normal. Gallbladder: Normal Kidneys: No masses are evident. No hydronephrosis is present. Anterior superior right renal cyst is present measuring 3.6 cm. 3.1 cm superior pole left renal cyst is present. There is a medial mid rig ht renal cyst measuring 2.1 cm. There is a 2.3 cm cyst inferior pole right kidney Maybe a couple pun ctate renal calcifications without obstruction at the inferior pole left kidney measuring approximate ly 0.4 cm. Aorta: Vascular calcification is within the aorta. No aneurysmal dilatation or dissection evident. Inferior vena cava: Normal. CT PELVIS: Loops of bowel within the abdomen and pelvis are normal. Scattered diverticuli without acute diverti culitis is within the sigmoid colon region There are loops of bowel which are incompletely distende d or lack oral contrast limiting their evaluation. Appendix: Normal as visualized. Urinary bladder: Normal. Genitourinary structures: Prostate is prominent with calcification Osseous structures: No suspicious lytic or sclerotic lesions. Generative changes are in the lower lum bar spine IMPRESSION: 1. Prior splenic artery repair with metallic scatter artifact present. No new or recurrent aneurysm evident. 2. Couple of nonobstructing 0.4 cm renal stones inferior pole left kidney.
== END | disposition home or self-care (01) ==
LOC: RADCTMAIN 08:08
PROVIDERS: ATTEND Surgery
DX: N20.0 Calculus of kidney (principal); I72.8 Aneurysm of other specified arteries
CPT/HCPCS: 82565; 84520; 36415; 74174; Q9967

== ENCOUNTER → 2024-07-26 | Outpatient (CLI) | payer MEDICARE ==
--- NOTE | 2024-07-30 08:36 | US ---
EXAMINATION TYPE: US thyroid st tissue head/neck DATE OF EXAM: 07/26/2024 COMPARISON: NONE CLINICAL INDICATION: Male, 73 years old with history of E04.1 THYROID NODULE; f/u exm GLAND SIZE: Right Lobe: 4.7 x 1.1 x 1.5 cm Overall Parenchyma: homogeneous Left Lobe: 4.6 x 1.4 x 1.4 cm Overall Parenchyma: homogeneous Isthmus Thickness: 0.3 cm NODULES RIGHT: # of nodules measured on right: 0 LEFT: # of nodules measured on left: 1 1. 1.9 X 1.3 x 1.2 cm, lower, solid or almost completely solid, isoechoic nodule, which is wider th an tall, with smooth margins, without echogenic foci. TR 4. Prior size: 1.7 x 1.3 x 1.0 cm ISTHMUS: # of nodules measured in the isthmus: 0 Bilateral neck scanned, no evidence of lymphadenopathy. IMPRESSION: 1. Moderately suspicious nodule inferior pole left lobe thyroid. Fine-needle aspiration recommended. 2017 ACR TI-RADS LEVEL: TR-RADS 4 - Moderately Suspicious: Follow if > 1 cm, FNA if > 1.5 cm *Highest TI-RADS level nodule reported [facility], , 07/30/2024 8:34 AM
== END | disposition home or self-care (01) ==
LOC: RADUSWWP 06:51
PROVIDERS: ATTEND Family Medicine
DX: E04.1 Nontoxic single thyroid nodule (principal)
CPT/HCPCS: 76536

== ENCOUNTER 2024-08-24 08:00 | Day surgery (SDC) | payer MEDICARE ==
[2024-08-24 09:01] VITALS: RESP 16; TEMP 98.1
[2024-08-24 09:59] VITALS: BP 149/82; PULSE 80
--- NOTE | 2024-08-24 09:59 | US ---
EXAMINATION TYPE: US FNA thyroid first lesion DATE OF EXAM: 08/24/2024 9:50 AM REASON FOR EXAM: 73-year-old male referred for thyroid nodule FNA, E04.1 NONTOXIC SINGLE THYROID NODU LE RADIOLOGIST: Dr. Diego PROCEDURE: An initial scan demonstrated the solid, oval, circumscribed, 1.8 cm slightly hypoechoic, TR4 nodule i n the left mid to lower pole. This is targeted for FNA. The procedure, along with the risks and complications were discussed with the patient. Patient agreed to proceed with the procedure. A consent was signed and placed in patient's chart. Maximum sterile barrier technique was utilized. Timeout was performed by myself. The left side of the neck was sterilely prepped and draped in the usual fashion. 7 milliliters of 1% Lidocaine were utili zed to anesthetize the superficial and deep soft tissues at each nodule in turn. Following that, under ultrasound guidance, 5 passes were made into the nodule with 5 cc syringe sucti on. After each pass, the sample was placed on a slide and then sent for pathology. Upon conclusion, hemostasis was achieved, and patient was discharged home in satisfactory condition. IMPRESSION: Successful FNA of the 1.8 cm left TR4 nodule. Pathology pending. [facility], , 08/24/2024 9:57 AM
== END 2024-08-24 09:55 | disposition home or self-care (01) ==
LOC: RADPROMAIN 08:00
PROVIDERS: ATTEND Family Medicine
DX: E04.1 Nontoxic single thyroid nodule (principal)
CPT/HCPCS: 10005; 88173; 88305